=== PATIENT | male | born 1955 | race Caucasian/White ===

== ENCOUNTER 2016-07-06 07:46 | Day surgery (SDC) | payer BC ==
[~2016-07-06] VITALS: Ht 172.7 cm; Wt 118.5 kg
[2016-07-06 08:41] VITALS: BP 148/95; PULSE 83; TEMP 97.9
[2016-07-06] MEDS ORDERED: COZAAR 50MG50 MG/TAB PO (08:52)
[2016-07-06] MEDS ORDERED: CRESTOR 10MG10 MG PO (08:53)
[2016-07-06] MEDS ORDERED: MOBIC15 MG PO (08:53)
[2016-07-06] MEDS ORDERED: OMEGA-3 1000 MG1 CAP PO (08:54)
[2016-07-06] MEDS ORDERED: VITAMIN D 1001000 IU PO (08:55)
[2016-07-06] MEDS ORDERED: ASPIRIN 81M81 MG/TA2 PO (08:56)
[2016-07-06] MEDS ORDERED: VITAMIN C500 MG PO (08:56)
[2016-07-06 10:50] VITALS: BP 122/72; PULSE 74; TEMP 97.2
[2016-07-06] MEDS ORDERED: PERCOCET 325 MG1 TA2 PO (10:57)
[2016-07-06] MEDS ORDERED: MOTRIN 600600 MG/TAB PO (10:58)
[2016-07-06] MEDS ORDERED: COLACE 100100 MG/CAP PO (10:58)
[2016-07-06 11:05] VITALS: BP 104/67; PULSE 70
[2016-07-06 11:20] VITALS: BP 101/53; PULSE 68
[2016-07-06 11:35] VITALS: BP 123/72; PULSE 70
== END 2016-07-06 11:50 | disposition home or self-care (01) ==
LOC: SDCO 07:46
DX: K42.9 Umbilical hernia without obstruction or gangrene (principal); K21.9 Gastro-esophageal reflux disease without esophagitis; E55.9 Vitamin D deficiency, unspecified; E78.2 Mixed hyperlipidemia; I10 Essential (primary) hypertension; Z96.653 Presence of artificial knee joint, bilateral; G47.33 Obstructive sleep apnea (adult) (pediatric); G47.34 Idiopathic sleep related nonobstructive alveolar hypoventilation; D70.9 Neutropenia, unspecified; Z68.39 Body mass index [BMI] 39.0-39.9, adult; E78.00 Pure hypercholesterolemia, unspecified
CPT/HCPCS: C1781; J0690; J1885; J2405; J2704; J3010; J7120